=== PATIENT | female | born 1980 ===

== ENCOUNTER 2025-08-16 06:26 | Day surgery (SDC) | payer BC, SELFPAY | END 2025-08-16 16:29 | disposition home or self-care (01) | LOC: GI 06:26 | PROVIDERS: ATTENDING PHYSICIAN Internal Medicine Gastroenterology | DX: Z12.11 Encounter for screening for malignant neoplasm of colon (principal); K57.30 Diverticulosis of large intestine without perforation or abscess without bleeding; K64.9 Unspecified hemorrhoids; D12.3 Benign neoplasm of transverse colon; K63.5 Polyp of colon | CPT/HCPCS: 45385; 45380; 88305 ==